=== PATIENT | male | born 1985 | race African-American/Black ===

== ENCOUNTER 2016-07-03 12:30 | Emergency (ER) | payer OTHER ==
--- NOTE | ~2016-07-03 | EKG ---
PATIENT: GENARO RINALDI UNIT #: [id number] Ventricular Rate: 70 BPM Atrial Rate: 70 BPM P-R Interval: 178 ms QRS Duration: 92 ms Q-T Interval: 354 ms QTC Calculation(Bezet): 382 ms P Dawson: 54 degrees Calculated R Dawson: 45 degrees Calculated T Dawson: 35 degrees Diagnosis Line: Normal sinus rhythm Diagnosis Line: Nonspecific T wave abnormality Diagnosis Line: Abnormal ECG Diagnosis Line: No previous ECGs available Diagnosis Line: Confirmed by JESSICA CASTRO MD ([id number]) on Diagnosis Line: 07/03/2016 1:38:02 PM INTERPRETING MD: MATTHEW VAZQUEZ
--- NOTE | ~2016-07-03 | CR72 ---
[facility] A Service of [facility] & [facility] RADIOLOGY TEXT RESULTS PATIENT: GENARO RINALDI LOCATION: [facility] : 83 UNIT #: [id number] AGE: [address]: Adrienne Garcia MD SEX: M ORDER DR: [id number] [facility] [address] [place], [place] [address] [id number] E MR#: [id number] Acc #: [id number] NAME: GENARO RINALDI : 1985 SEX: M STUDY DATE/TIME: 07/03/2016 13:17 UNIT: [facility] ROOM: STUDY DESCRIPTION: CR Chest Single View Portable Attending Physician: Adrienne Garcia M.D. Ordering Physician: Adrienne Garcia M.D. Primary Care Physician: [facility] MEDICAL IMAGING REPORT This report is preliminary unless electronic signature is present EXAM AP radiograph of the chest, 07/03/2016. HISTORY Chest pain. Posterior back pain. Shortness of air. TECHNIQUE AP radiographs of the chest are presented. COMPARISON 04/19/2011 FINDINGS Stable appearance of scoliosis. No acute-appearing bony abnormality. The heart and mediastinum are normal in size and contour. The lungs are well-inflated bilaterally. There is no evidence of acute pulmonary disease, pleural effusion, or pneumothorax. No suspicious nodule. Visualized upper abdomen unremarkable. Dictated by... Maksim Bonds M.D. THIS IS AN ELECTRONICALLY VERIFIED REPORT Maksim Bonds M.D. at 07/07/2016 4:57 PM SARMAD/anthony TD: 07/03/2016 17:13 JOB #: [id number] MEDICAL IMAGING REPORT Page 1 of 1 COPY
[2016-07-03 13:35] LABS: BASOPHIL# 0.1 X10e3 (0-0.3); DIFF IND NO; EOSINOPHIL# 0.1 X10e3 (0-0.7); EOSINOPHIL% 2.1 % (0.0-7.0); HEMATOCRIT 42.7 % (38.0-50.0); HEMOGLOBIN 14.2 gm/dL (13.0-16.0); LYMPHOCYTE# 2.2 X10e3 (1.0-3.5); LYMPHOCYTE% 42.2 % (17.0-45.0); MEAN CELL VOLUME 82.4 FL (83-96); MEAN CORPUSCULAR HEMOGLOBIN 27.4 PG (28-34); MEAN CORPUSCULAR HGB CONC 33.2 g/dL (30-36); MEAN PLATELET VOLUME 9.8 FL (6.5-11.5); MONOCYTE# 0.4 X10e3 (0-1.0); MONOCYTE% 7.6 % (3.0-12.0); NEUTROPHIL# 2.5 X10e3 (1.5-7.1); NEUTROPHIL% 47.1 % (40-75); PLATELET COUNT 204 X10e3 (140-420); RED BLOOD COUNT 5.19 X10e (3.90-5.60); RED CELL DISTRIBUTION WIDTH 13.7 % (11.0-15.5); WHITE BLOOD COUNT 5.2 X10e3 (4.0-10.5)
[2016-07-03 14:05] LABS: ALBUMIN SERUM 4.2 g/dL (3.5-5.0); ALKALINE PHOSPHATASE 60 U/L (32-92); ALT (SGPT) 27 U/L (10-40); AST (SGOT) 22 U/L (10-42); BILIRUBIN,TOTAL 0.4 mg/dL (0.2-2.0); BLOOD UREA NITROGEN 9 mg/dL (9-23); CALCIUM SERUM 9.1 mg/dL (8.4-10.2); CARBON DIOXIDE 24 mmol/L (22-31); CHLORIDE 106 mmol/L (100-111); CREATININE SERUM 1.2 mg/dL (0.6-1.4); GLOM FILT RATE Estimated 80.1 mL/min (>60); GLUCOSE FASTING 114 mg/dL (70-110); LIPASE 72 U/L (22-51); POTASSIUM 3.9 mmol/L (3.5-5.1); PROTEIN TOTAL SERUM 7.3 g/dL (6.0-8.3); SODIUM 136 mmol/L (135-145)
[2016-07-03 14:07] LABS: BILIRUBIN, DIRECT <0.1 mg/dL (0.0-0.2); BILIRUBIN,INDIRECT 0.3 mg/dL (0.0-0.9)
[2016-07-03 14:20] LABS: URINE SOURCE CLEAN CATCH
[2016-07-03 14:29] LABS: URINE APPEARANCE CLEAR; URINE BILIRUBIN NEG (NEG); URINE BLOOD NEG (NEG); URINE COLOR YELLOW; URINE GLUCOSE NEG (NEG); URINE KETONE NEG (NEG); URINE LEUKOCYTE ESTERASE NEG (NEG); URINE NITRATE NEG (NEG); URINE PH 6.5 (5-8); URINE PROTEIN NEG (NEG); URINE SPECIFIC GRAVITY 1.016 (1.003-1.035); URINE UROBILINOGEN 0.2 MG/DL (NEG)
[2016-07-03 14:35] LABS: CULTURE INDICATED? NO
[2016-07-03 14:39] LABS: AMPHETAMINE NEG (NEG); BARBITURATES NEG (NEG); BENZODIAZEPINES NEG (NEG); COCAINE NEG (NEG); MARIJUANA POS (NEG); OPIATES NEG (NEG); TRICYCLIC ANTIDEPRESSANTS NEG (NEG); U METHADONE NEG (NEG)
[2016-07-03 16:16] LABS: POC - CKMB 1.7 ng/mL (0.0-7.9); POC - TROPONIN <0.05 ng/mL (<=0.05)
[2016-07-03 16:58] LABS: %MB 0.7 % (0.0-4.0); MB 2.4 ng/ml
== END 2016-07-03 16:46 | disposition left against medical advice (07) ==
LOC: CED 12:30
PROVIDERS: Emergency Medicine
DX: K85.90 Acute pancreatitis without necrosis or infection, unspecified (principal); R07.89 Other chest pain; F17.210 Nicotine dependence, cigarettes, uncomplicated
CPT/HCPCS: 71010; 80048; 80076; 80307; 81003; 82550; 82553; 83690; 84484; 85025; 85379; 93005; 96374; 99284; J1885